=== PATIENT | female | born 1990 | race Caucasian/White ===

== ENCOUNTER 2022-04-15 17:16 | Emergency (ER) | payer SELFPAY ==
[~2022-04-15 17:16] MED LIST: Iopamidol 300 61% 100 ML VIAL FS ONE
[2022-04-15 18:08] LABS: BHCG - Serum Negative (NEGATIVE); Pregs Control Background? CLEAR/WHITE (CLR/WHITE); Pregs Control Bar Appear? YES (CONTROL BAR)
[2022-04-15 18:24] LABS: Bilirubin Neg (Negative); Blood, Urine 25 (Negative); Clarity Clear (Clear); Glucose, Urine (Dipstick) Normal (Negative); Ketone, Urine Negative (Negative); Leukocyte Negative (Negative); Nitrite Negative (Negative); Protein, Urine (Dipstick) Negative (Neg-Trace)
[2022-04-15 18:38] LABS: Bacteria/HPF None Seen HPF (None Seen); RBC/HPF 0-3 HPF (0-3); Squamous Epithelial 0-3 HPF (0-3); WBC/HPF 0-3 HPF (0-3)
== END 2022-04-15 19:10 | disposition home or self-care (01) ==
LOC: CSHERS 17:16
DX: K80.20 Calculus of gallbladder without cholecystitis without obstruction (principal); K76.0 Fatty (change of) liver, not elsewhere classified; N83.202 Unspecified ovarian cyst, left side; F17.290 Nicotine dependence, other tobacco product, uncomplicated
CPT/HCPCS: 74177; 81003; 81015; 84484; 84703; 93005; Q9967